=== PATIENT | male | born 1975 | race Caucasian/White ===

== ENCOUNTER 2017-03-31 06:22 | Emergency (ER) | payer BC, SELFPAY | END 2017-03-31 08:58 | disposition home or self-care (01) | PROVIDERS: Emergency Provider Emergency Medicine; Visit Provider Emergency Medicine | DX: T40.1X1A Poisoning by heroin, accidental (unintentional), initial encounter (principal); Y92.239 Unspecified place in hospital as the place of occurrence of the external cause | CPT/HCPCS: 71010; 80053; 85025; 96365; 96375; 99284; J2310; J2405 ==